=== PATIENT | male | born 1935 | race Caucasian/White ===

== ENCOUNTER 2019-04-06 23:22 | Inpatient (IN) | payer MEDICARE, BC ==
[~2019-04-06] VITALS: Ht 172.7 cm; Wt 84.5 kg
[2019-04-06] MEDS ORDERED: COZAAR25 MG (23:43)
[2019-04-06] MEDS ORDERED: ZOCOR10 MG (23:43)
[2019-04-06] MEDS ORDERED: HYDROCHLOROTH12.5 M1 (23:43)
[2019-04-06] MEDS ORDERED: HUMALOG MI100 UNITS/ (23:45)
[2019-04-06] MEDS ORDERED: HUMULIN N100 U/ML (23:45)
[2019-04-07 00:14] LABS: APTT 36.9 SECONDS (22.8-39.4); INR 1.33 (0.85-1.17); PROTIME 15.9 SECONDS (11.6-15.0)
[2019-04-07 00:22] LABS: KETONE - SERUM SMALL mg/dL (NEGATIVE)
[2019-04-07 00:24] LABS: ALBUMIN 3.1 g/dL (3.4-5.0); ALKALINE PHOSPHATASE 49 U/L (46-116); ALT (SGPT) 26 U/L (10-68); CALC OSMOLALITY 288 mosm/kg (275-300); CALCIUM 8.8 mg/dL (8.5-10.1); CARBON DIOXIDE 23.2 mmol/L (21.0-32.0); CHLORIDE - SERUM 99 mmol/L (98-107); CREATININE - SERUM 1.7 mg/dL (0.6-1.3); HEMOGLOBIN 13.7 g/dL (13.5-17.5); MCH 32.1 pg (26.0-34.0); MCHC 36.1 g/dL (31.0-37.0); MEAN PLATELET VOLUME 9.4 fL (7.4-10.4); POTASSIUM - SERUM 3.3 mmol/L (3.5-5.1); PROTEIN - SERUM 6.5 g/dL (6.4-8.2); RBC 4.27 10x6/uL (4.20-6.10); RDW 12.3 % (11.5-14.5); SODIUM 135 mmol/L (136-145); UREA NITROGEN 32 mg/dL (7-18); eGFR NON AFRICAN AMERICAN 41 mL/min (90-120)
[2019-04-07 00:25] LABS: GLUCOSE 314 mg/dL (74-106)
[2019-04-07 00:29] LABS: PLATELET COUNT 151 10x3/uL (130-400); WBC 1.5 10x3/uL (4.8-10.8)
[2019-04-07 00:44] LABS: CREATINE KINASE 1966 UL (21-232); LIPASE 26 U/L (73-393); MAGNESIUM - SERUM 1.7 mg/dL (1.8-2.4); PRO BNP 2977 pg/mL (0-450); THYROID STIMULATING HORMONE 0.76 uIU/mL (0.36-3.74)
[2019-04-07 00:45] LABS: TROPONIN-I 0.088 ng/mL (0.000-0.060)
[2019-04-07 00:46] LABS: CKMB 4.2 U/L (0.0-3.6)
--- NOTE | 2019-04-07 00:54 | NUR ---
FINGER STICK BLOOD SUGAR 283.
[2019-04-07 01:00] LABS: LYMPHOCYTES 64 % (15-50); MONOCYTES 23 % (2-11); NEUTROPHILS 8 % (40-80); PLATELET ESTIMATE DECREASED
[2019-04-07 01:56] LABS: MONO NEGATIVE (NEGATIVE)
--- NOTE | 2019-04-07 02:00 | NUR ---
DR. EISENBERG CONSULTED AND PAGED. PT AFIBB 120-160 ON TELEMETRY. NEW ORDERS ESTABLISHED AT THIS TIME. WILL CONTINUE TO MONITOR.
--- NOTE | 2019-04-07 03:48 | NUR ---
10mg bolus of cardizem given BY SUE BEAN. CARDIZEM DRIP RUNNING AT 5ML/HR INTIATED BY DIANA. INVENTORY WORKER SOLOMEN NOTIFIED. PT RRE EVEN UNLABORED AT THIS TIME. BED LOW CALL LIGHT WITHIN REACH, BED ALARM IN PLACE. WILL CONTINUE TO MONITOR.
[2019-04-07 04:00] VITALS: BP 110/64
[2019-04-07 05:26] LABS: BASOPHILS 0 % (0-2); EOSINOPHILS 0 % (0-7); HEMATOCRIT 36.8 % (42.0-54.0); HEMOGLOBIN 13.2 g/dL (13.5-17.5); IMMATURE GRANULOCYTES 0.6 % (0-5); LYMPHOCYTES 48.4 % (15-50); MCH 31.8 pg (26.0-34.0); MCHC 35.9 g/dL (31.0-37.0); MCV 88.7 fL (80.0-100.0); MEAN PLATELET VOLUME 9.5 fL (7.4-10.4); PLATELET COUNT 144 10x3/uL (130-400); RBC 4.15 10x6/uL (4.20-6.10); RDW 12.3 % (11.5-14.5)
[2019-04-07 05:30] LABS: WBC 1.6 10x3/uL (4.8-10.8)
[2019-04-07 05:40] LABS: KETONE - SERUM NEGATIVE (NEGATIVE)
[2019-04-07 05:51] LABS: CALCIUM 8.4 mg/dL (8.5-10.1); CHLORIDE - SERUM 100 mmol/L (98-107); CKMB 2.7 U/L (0.0-3.6); CREATININE - SERUM 1.5 mg/dL (0.6-1.3); MAGNESIUM - SERUM 1.7 mg/dL (1.8-2.4); POTASSIUM - SERUM 3.2 mmol/L (3.5-5.1); SODIUM 135 mmol/L (136-145); UREA NITROGEN 27 mg/dL (7-18); eGFR NON AFRICAN AMERICAN 47 mL/min (90-120)
[2019-04-07 05:52] LABS: CALC OSMOLALITY 280 mosm/kg (275-300); CREATINE KINASE 1428 UL (21-232); GLUCOSE 209 mg/dL (74-106); TROPONIN-I 0.228 ng/mL (0.000-0.060)
--- NOTE | 2019-04-07 07:30 | NUR ---
ALERT AND ORIENTED. TELEMERTY SHOWS [id number]. RIGHT FA WITH NS AT 75 AND CARDIZEM AT 10. BED ALARM ON. AT 3 L/M PER NC. LOW POTASSIUN AND LOW MAG TREATED. DENIES ANY NEEDS. SR UP WITH CALL LIGHT IN REACH. WILL MONITOR
[2019-04-07 07:40] LABS: APPEARANCE CLEAR (CLEAR); BILIRUBIN NEGATIVE (NEGATIVE); COLOR YELLOW (YELLOW); GLUCOSE 1000 mg/dL (NEGATIVE); KETONE NEGATIVE (NEGATIVE); NITRITE NEGATIVE (NEGATIVE); PROTEIN 2+ mg/dL (NEGATIVE); UROBILINOGEN NORMAL (NORMAL)
[2019-04-07 07:52] LABS: AMORPHOUS SEDIMENT <1+ /lpf (NONE SEEN); BACTERIA FEW /hpf (NONE SEEN); EPITHELIAL CELLS OCC /hpf (0-5); GRANULAR CAST 0-5 /lpf (NONE SEEN); MUCUS <1+ /lpf (NONE SEEN); RED CELLS - URINE OCC /hpf (0-5); WHITE CELLS - URINE NSEEN /hpf (0-5)
[2019-04-07 08:57] VITALS: BP 120/65
[2019-04-07] MEDS ORDERED: ZOCOR40 MG PO (10:24)
[2019-04-07] MEDS ORDERED: COZAAR50 MG (10:41)
[2019-04-07] MEDS ORDERED: HYDROCHLOROTH12.5 M1 PO (10:42)
[2019-04-07] MEDS ORDERED: PLENDIL2.5 MG PO (10:43)
[2019-04-07] MEDS ORDERED: CATAPRES0.1 MG PO (10:51)
[2019-04-07] MEDS ORDERED: HUMULIN N100 U/ML SC ×2 (10:54→10:56)
[2019-04-07] MEDS ORDERED: HUMALOG 30100 UNITS/ SC (10:57)
[2019-04-07 12:09] LABS: CKMB 1.6 U/L (0.0-3.6)
[2019-04-07 12:11] LABS: CREATINE KINASE 917 UL (21-232)
[2019-04-07 12:12] LABS: TROPONIN-I 0.449 ng/mL (0.000-0.060)
[2019-04-07 12:53] VITALS: BMI 24.0
[2019-04-07 13:07] VITALS: BP 92/62
[2019-04-07 16:37] VITALS: BP 94/59
--- NOTE | 2019-04-07 19:15 | NUR ---
AROUSES EASY REVERSE ISOLATION IS BEING OBSERVED LCTA SKIN WARM AND DRY O2 AT 3L MONITOR IN PLACE AND RUNNING AFIB AT 121 BED IS LOW AND LOCKED AND PT DENIES PAIN OR NEEDS
[2019-04-07 20:00] VITALS: BP 122/60
[2019-04-08] VITALS (14 sets, daily range): BP systolic 102–143; BP diastolic 60–92; Ht 172.7 cm; Wt 84.5 kg
--- NOTE | 2019-04-08 02:07 | NUR ---
REATARTED BOTH IVs ONE TO LEFT AC AND ONE TO RT FOREARM CARDIZEM TO LEFT AND IV TKO TO RT
[2019-04-08 04:55] LABS: HEMATOCRIT 37.1 % (42.0-54.0); HEMOGLOBIN 13.3 g/dL (13.5-17.5); MCH 31.8 pg (26.0-34.0); MCHC 35.8 g/dL (31.0-37.0); MCV 88.8 fL (80.0-100.0); MEAN PLATELET VOLUME 9.6 fL (7.4-10.4); PLATELET COUNT 128 10x3/uL (130-400); RBC 4.18 10x6/uL (4.20-6.10); RDW 12.1 % (11.5-14.5)
[2019-04-08 04:58] LABS: INR 1.12 (0.85-1.17); PROTIME 13.9 SECONDS (11.6-15.0)
[2019-04-08 05:07] LABS: ANION GAP 11.6 mmol/L (8-16); CALCIUM 8.7 mg/dL (8.5-10.1); CARBON DIOXIDE 25.1 mmol/L (21.0-32.0); CREATININE - SERUM 1.4 mg/dL (0.6-1.3); PHOSPHOROUS 1.6 mg/dL (2.5-4.9); POTASSIUM - SERUM 3.7 mmol/L (3.5-5.1)
[2019-04-08 05:34] LABS: LYMPHOCYTES 51 % (15-50); MONOCYTES 30 % (2-11); NEUTROPHILS 18 % (40-80); PLATELET ESTIMATE NORMAL
--- NOTE | 2019-04-08 07:30 | NUR ---
ASSESSMENT COMPLETED. ALERT AND ORIENTED. TELEMERTY SHOWS A FIB AT 119 IV TO RIGHT AC WITN NS AND CARDIZEM AT 5 INFUSING INTO LEFT AC. NPO FOR BONE BX. DENIES ANY NEEDS. SR UP WITH CALL LIGHT IN REACH. WILL MONITOR
[2019-04-08 12:10] LABS: EBV - EARLY ANTIGEN AB IGG <9.0 U/mL (0.0-8.9); EBV VIRAL CAPSID AB IGG 44.4 U/mL (0.0-17.9); EBV VIRAL CAPSID AB IGM <36.0 U/mL (0.0-35.9)
--- NOTE | 2019-04-08 19:33 | NUR ---
RECIEVED UP IN BED WITH EYES OPEN. ALERT AND ORIETNED TO PERSON AND PLACE ONLY. O2@ 3 LITERS PER N/C. DSG TO LOWER MID BACK. REMAINS IN NEUTROPENIC ISOLATION. TELEMETRY IN PLACE. DENIES ANY NEEDS AT THIS TIME.
--- NOTE | 2019-04-09 00:17 | NUR ---
PULLED BOTH IV'S OUT EARLIER. RESTARTED ONE IN LEFT FA. CARDIZEM INFUSING AT 5CC/HR. ALSO, PULLED OFF TELEMETRY. NITHIN " IDID'NT KNOW I DID THAT". ALERT AND ORIENTED TO PERSON AND PLACE ONLY.
[2019-04-09 04:00] VITALS: BP 115/69
--- NOTE | 2019-04-09 07:32 | NUR ---
ROUNDING DONE WITH PATIENT BEING IN NETROPENIC ISOLATION. WBC THIS AM IS 2.0. CONFUSED. I SET BED ALARM ON BED. ON 3L PER NC. ON HEART MONITOR SHWOING UCAF, HR 141. RGITH FA PIV SEEN WITH CARDIZEM INFUSING AT 5 CC/HR AND RIGHT FA INFUSING WITH NS INFUSING AT 100 CC/HR. ON EP, NO LABS SEEN.
[2019-04-09 07:55] VITALS: BP 104/68
--- NOTE | 2019-04-09 08:21 | NUR ---
TAKEN OUT OF ISOLATION.
[2019-04-09 09:47] LABS: BASOPHILS 0.2 % (0-2); EOSINOPHILS 0 % (0-7); HEMATOCRIT 38.9 % (42.0-54.0); HEMOGLOBIN 13.7 g/dL (13.5-17.5); IMMATURE GRANULOCYTES 0.5 % (0-5); LYMPHOCYTES 16.5 % (15-50); MCH 31.7 pg (26.0-34.0); MCHC 35.2 g/dL (31.0-37.0); MEAN PLATELET VOLUME 10.4 fL (7.4-10.4); MONOCYTES 26.9 % (2-11); NEUTROPHILS 55.9 % (40-80); PLATELET COUNT 141 10x3/uL (130-400); RBC 4.32 10x6/uL (4.20-6.10); RDW 12.2 % (11.5-14.5)
[2019-04-09 09:51] LABS: ANION GAP 13.9 mmol/L (8-16); CALCIUM 8.4 mg/dL (8.5-10.1); CARBON DIOXIDE 24.3 mmol/L (21.0-32.0); CREATININE - SERUM 1.1 mg/dL (0.6-1.3); POTASSIUM - SERUM 4.2 mmol/L (3.5-5.1)
[2019-04-09 09:52] LABS: WBC 4.1 10x3/uL (4.8-10.8)
--- NOTE | 2019-04-09 11:56 | NUR ---
CARDIZEM DRIP STOPPED.
[2019-04-09 12:25] VITALS: BP 124/57
--- NOTE | 2019-04-09 12:52 | NUR ---
FAMILY TO LEAVE. BED ALARM IS ON AND IN USE AND DOOR IS OPEN.
--- NOTE | 2019-04-09 14:02 | NUR ---
REHAB PRESCREENING Rehab referral received and chart reviewed. PT evaluation has been ordered but not documented as of yet. Rehab will continue to follow this patient for admission criteria. Thank you for this referral! Hannah Nava, PERL PROGRAMMER Rehab PD
[2019-04-09 16:02] VITALS: BP 146/80
--- NOTE | 2019-04-09 17:31 | NUR ---
DR MCCARTHY IN TO SEE PATIENT.
--- NOTE | 2019-04-09 19:26 | NUR ---
RECIEVED RESTING IN BED WITH EYES OPEN. ALERT AND ORIENTED X1. CONFUSED NTO PLACE TIME AND SITUATION. PULLED GOWN OFF AND HAS WET BRIEF ON. PLACED GOWN BACK ON PT AND BRIEF CHANGED WITH PERICARE PROVIDED. IV TO RIGHT AND LEFT FA. BED ALRM ON AND FUNCTIONING PROPERLY. NO S/S OF DISTRESS OBSERVED.
[2019-04-09 20:00] VITALS: BP 123/66; BP 143/82
[2019-04-10] VITALS: BP 97/46
--- NOTE | 2019-04-10 01:39 | NUR ---
[facility] HAS NUMEROUS RUNS OF V-TACH. 7-[address] WHITTINGTON WITH NEW ORDERS FOR CARDIZEM 60MG PO X1 NOW AND INCREASE HIS DOSE TO 120MG TID. O2 SAT HAD DROPPED TO 89% UPP0ED O2 TO 3 LITERS PER N/C WITH VERY LITTLE RESULTS. CALLED RT TO EVALUATE. INCREASED O2 TO 4 LITERS AND SATS ARE 92% AT THIS TIME. NO DISTRESS OBSERVED. LUNG SOUNDS ARE CLEAR.
[2019-04-10 05:25] LABS: HEMATOCRIT 38.2 % (42.0-54.0); HEMOGLOBIN 13.5 g/dL (13.5-17.5); MCH 31.8 pg (26.0-34.0); MCHC 35.3 g/dL (31.0-37.0); MCV 89.9 fL (80.0-100.0); MEAN PLATELET VOLUME 10.1 fL (7.4-10.4); PLATELET COUNT 153 10x3/uL (130-400); RBC 4.25 10x6/uL (4.20-6.10); RDW 12.5 % (11.5-14.5)
[2019-04-10 05:42] LABS: ANION GAP 13.8 mmol/L (8-16); CALCIUM 8.3 mg/dL (8.5-10.1); CARBON DIOXIDE 22.8 mmol/L (21.0-32.0); CREATININE - SERUM 1.1 mg/dL (0.6-1.3); POTASSIUM - SERUM 3.6 mmol/L (3.5-5.1); VANCOMYCIN - RANDOM 4.5 ug/mL (10.0-20.0)
[2019-04-10 05:56] LABS: LYMPHOCYTES 20 % (15-50); MONOCYTES 26 % (2-11); NEUTROPHILS 46 % (40-80); PLATELET ESTIMATE NORMAL
[2019-04-10 07:58] VITALS: BP 128/78
--- NOTE | 2019-04-10 08:03 | NUR ---
ASSESMENT DONE. WITHOUT DISTRESS NOTED AT THIS TIME.
--- NOTE | 2019-04-10 09:24 | EC ---
PATIENT:JODI GROVE DATE OF SERVICE: 04/07/19 SEX: M MEDICAL RECORD: [id number] DATE OF : 35 LOCATION:D.M2 D.212 AGE OF PATIENT: 83 ADMISSION DATE: 04/07/19 REFERRING PHYSICIAN: INTERPRETING PHYSICIAN: ANMOL EISENBERG MD ECHOCARDIOGRAM REPORT ECHO CHARGES 4 ECHO COMPLETE Date: 04/07/19 CLINICAL DIAGNOSIS: ECHOCARDIOGRAPHIC MEASUREMENTS (adult normal given) AC root (d.<3.7cm) 3.6 cm LV Septum d (<1.2 cm> 1.6 cm Valve Excursion 2.0 cm LV Septum (systole) 2.3 cm Left Atria (s.<4.0cm> 4.4 cm LVPW d(<1.2cm) 1.3 cm RV (d.<2.3cm) 2.6 cm LVPW (sytole) 1.9 cm LV diastole(<5.6CM) 5.0 cm MV E-F(>70mm/sec) cm LV systole 2.3 cm LVOT Diameter 1.9 cm MV exc.(>10mm) cm Est.ejection fraction (50-75%) % DOPPLER: LVIT cm/sec A cm/sec E 78.0 cm/sec LA cm/sec RVSP 36.1 mmHg LVOT 128 cm/sec AOP1/2T m/s Asc. Ao 134 cm/sec RVOT 142 cm/sec RA cm/sec PA 142 cm/sec AV Gradient Peak 7.2 mmHg AV Mean 3.9 mmHg AV Area 2.4 cm MV Gradient Peak 3.6 mmHg MV Mean 1.5 mmHg MV Area cm COMMENTS: Micro Photographer: 1 PEDRO BENITEZOE Management Retail Intern: 3 Dr. Velasquez TAPE# PACS Pericardial Effusion N DATE OF SERVICE: Adequate 2D, color flow, spectral Doppler, and M-mode. LVH is present. LV internal dimension is normal. Wall motion normal. EF is greater than or equal to 55%. Aortic valve is sclerotic. There is no evidence of stenosis by Doppler interrogation. Left atrium is dilated at 4.4 cm. Mitral valve shows no prolapse. Trace MR. Right-sided chambers grossly normal. Trace TR. TRANSINT:[id number] Voice Confirmation ID: [id number] DOCUMENT ID: [id number] ECHOCARDIOGRAM REPORT [id number] PERFECTO,SEABERN ANMOL EISENBERG MD at 0924 CC: [id number] DICTATION DATE: 04/07/19 1241 BREAKER OPERATOR: 04/07/19 1311 ADM IN [facility] [address] [id number]
--- NOTE | 2019-04-10 09:24 | CN ---
PATIENT NAME:JODI GROVE MEDICAL RECORD: [id number] : 35 LOCATION:. D.2121 ADMIT DATE: 04/07/19 ACCOUNT: [id number] CONSULTING PHYSICIAN: ANMOL EISENBERG MD REFERRING PHYSICIAN: CATHLEEN MCCARTHY MD DATE OF CONSULTATION: 04/07/2019 HISTORY OF PRESENT ILLNESS: An 83-year-old gentleman with history of diabetes, has a history of dyslipidemia and hypertension, was admitted with hyperglycemia as well as leukopenia. His main complaint at this point in time is some generalized fatigue. No specific qualifying symptomology. No palpitations, perhaps some dyspnea on exertion, found to be in atrial fibrillation, rate is currently improved on Cardizem drip. Etiology of this historically is very difficult to turn and in fact may be chronic. We are asked to see him concerning his cardiovascular status. PAST MEDICAL HISTORY: Includes: 1. History of diabetes mellitus. 2. Dyslipidemia. MEDICATIONS: Include insulin per scale, losartan 50 every day, simvastatin unknown dose, HCTZ 25 every day. ALLERGIES: None known. SOCIAL HISTORY: Nonsmoker, nondrinker. Typically, active, able to take care of his ADLs. REVIEW OF SYSTEMS: The patient reports easy bruising but reports no swollen glands. The patient reports no fever, no night sweats, no significant weight gain, no significant weight loss. No significant exercise tolerance. The patient reports no dry eyes, no irritation, no vision change. Patient reports no difficulty hearing and no ear pain. Patient reports no frequent nose bleeds or nose and sinus problems. Patient reports on arm pain on exertion. No shortness of breath while lying down. No history of heart murmur. Patient reports no cough, no wheezing or coughing up blood. Patient reports no abdominal pain, no vomiting. Normal appetite. No diarrhea and not vomiting blood. No nausea and no constipation. Patient reports no incontinence. No difficulty urinating. No hematuria. No increased frequency. Patient reports no muscle aches. No weakness, no arthralgias, no back pain. No swelling of the extremities. Patient reports no abnormal mole, no jaundice, no rashes. Reports no loss of consciousness. No weakness and no numbness. No seizures, dizziness, or headaches. The patient reports no depression, no sleep disturbance, feeling safe in a relationship and no alcohol abuse. Patient reports on fatigue. Reports no runny nose or sinus pressure. No itching, no hives, and no frequent sneezing. PHYSICAL EXAMINATION: GENERAL: Elderly gentleman in no acute distress, poor historian. VITAL SIGNS: Blood pressure 110/64, pulse 92, irregular. HEENT: Normocephalic, atraumatic. NECK: No bruits noted. HEART: Irregular, rate is controlled. A II/ systolic ejection murmur. LUNGS: Fair air excursion. ABDOMEN: Soft, nontender. CONSULT REPORT [id number] JODI GROVE EXTREMITIES: Pulses 2+. No edema. DIAGNOSTIC DATA: EKG shows atrial fibrillation. IMPRESSION: Atrial fibrillation, duration unknown. Check echocardiographic study. At this point in time, given his lack of symptoms, strive for rate control. We will add NOAC when his hematological deficiencies are addressed if the patient is a candidate. TRANSINT:[id number] Voice Confirmation ID: [id number] DOCUMENT ID: [id number] ANMOL EISENBERG MD at 0924 CC: [id number] DICTATION DATE: 04/07/19841 ADVERTISING STRATEGIST: 04/07/1915 ADM IN [facility] [address] [place] [address]
--- NOTE | 2019-04-10 09:50 | NUR ---
REHAB PRESCREENING PT eval completed. This patient will be a good candidate for ARU when he is medically stable and his physician feels he is appropriate to discharge. Rehab will continue to follow. Hannah Nava, AGUILAR Rehab PD
[2019-04-10 11:57] VITALS: BP 122/71
[2019-04-10 14:55] VITALS: BP 113/59
--- NOTE | 2019-04-10 15:46 | NUR ---
I have reviewed this patient and I concur with the Shift Assessment completed by the Licensed Practical Nurse today this shift.
--- NOTE | 2019-04-10 17:05 | NUR ---
WITHOUT CHANGES OR DISTRESS NOTED AT THIS TIME. DENIES NEEDS
--- NOTE | 2019-04-10 19:45 | NUR ---
RECEIVED REPORT, WILL ASSUME CARE OF PT, SITTING ON SIDE OF BED, DENIES ANY NEEDS AT THIS TIME, BED IS LOW, SRX2, BED ALARM IS ON, WILL CONTINUE PLAN OF CARE
[2019-04-10 20:00] VITALS: BP 103/57
[2019-04-11] VITALS: BP 101/61; BP 104/43
[2019-04-11 04:00] VITALS: BP 115/78
--- NOTE | 2019-04-11 04:43 | NUR ---
I have reviewed this patient and I concur with the Shift Assessment completed by the Licensed Practical Nurse today this shift.
[2019-04-11 05:50] LABS: BASOPHILS 0.5 % (0-2); EOSINOPHILS 0.3 % (0-7); HEMOGLOBIN 13.2 g/dL (13.5-17.5); IMMATURE GRANULOCYTES 5.1 % (0-5); LYMPHOCYTES 16.6 % (15-50); MCH 31.7 pg (26.0-34.0); MCHC 35.7 g/dL (31.0-37.0); MCV 88.9 fL (80.0-100.0); MEAN PLATELET VOLUME 10.4 fL (7.4-10.4); MONOCYTES 16.2 % (2-11); NEUTROPHILS 61.3 % (40-80); PLATELET COUNT 180 10x3/uL (130-400); RBC 4.16 10x6/uL (4.20-6.10); RDW 12.5 % (11.5-14.5)
[2019-04-11 05:53] LABS: WBC 10.9 10x3/uL (4.8-10.8)
[2019-04-11 06:09] LABS: ANION GAP 15.4 mmol/L (8-16); CALCIUM 7.7 mg/dL (8.5-10.1); CARBON DIOXIDE 20.3 mmol/L (21.0-32.0); CREATININE - SERUM 1.2 mg/dL (0.6-1.3); POTASSIUM - SERUM 3.7 mmol/L (3.5-5.1)
--- NOTE | 2019-04-11 07:20 | NUR ---
ASSESSMENT COMPLETED. CONFUSED. TELEMERTY SHOWS UCAF 129. O2 AT 4 L/M PER NC. BED ALARM ON. LEFT HAND SL. DENIES AND NEEDS. SR UP WITH CALL LIGHTIN REACH. FAMILY AT BEDSIDE. WILL MONITOR
[2019-04-11 08:39] VITALS: BP 110/67
[2019-04-11 11:43] VITALS: BP 113/73
--- NOTE | 2019-04-11 15:03 | NUR ---
Nutrition Follow-up: Pt reports appetite/PO intake improving. Diet: Diabetic Neutropenic PO intake: 53% avg today Wt: 186# Last BM: 04/11 Labs reviewed Meds reviewed Continue current diet as tolerated. [place] food preferences within diet restrictions. RD following.
--- NOTE | 2019-04-11 15:39 | NUR ---
Visited with the patient, his and daughter today re rehab. He is not sure he wants to participate in the program and refused PT today according to the PT notes. Discussed with the CM Tom. Melinda Marie RN Clinical liaison, Rehab
[2019-04-11 18:24] VITALS: BP 115/78
--- NOTE | 2019-04-11 19:04 | NUR ---
LYING QUIETLY. BEDALARM ON. SR UP WITH CALL LIGHT IN REACH
[2019-04-11 20:00] VITALS: BP 114/60
[2019-04-12 04:00] VITALS: BP 120/55
[2019-04-12 06:47] LABS: CALCIUM 7.7 mg/dL (8.5-10.1); CARBON DIOXIDE 24.4 mmol/L (21.0-32.0); CHLORIDE - SERUM 103 mmol/L (98-107); SODIUM 135 mmol/L (136-145); UREA NITROGEN 19 mg/dL (7-18); eGFR NON AFRICAN AMERICAN 76 mL/min (90-120)
[2019-04-12 06:50] LABS: CALC OSMOLALITY 274 mosm/kg (275-300); GLUCOSE 146 mg/dL (74-106)
[2019-04-12 06:51] LABS: POTASSIUM - SERUM 2.7 mmol/L (3.5-5.1)
[2019-04-12 07:21] LABS: BASOPHILS 0.5 % (0-2); HEMATOCRIT 35.2 % (42.0-54.0); HEMOGLOBIN 12.8 g/dL (13.5-17.5); IMMATURE GRANULOCYTES 4.9 % (0-5); LYMPHOCYTES 17.9 % (15-50); MCH 31.7 pg (26.0-34.0); MCHC 36.4 g/dL (31.0-37.0); MCV 87.1 fL (80.0-100.0); MEAN PLATELET VOLUME 11.2 fL (7.4-10.4); MONOCYTES 14.4 % (2-11); NEUTROPHILS 61.3 % (40-80); RBC 4.04 10x6/uL (4.20-6.10); RDW 12.4 % (11.5-14.5); WBC 11.5 10x3/uL (4.8-10.8)
[2019-04-12 07:23] LABS: PLATELET COUNT 122 10x3/uL (130-400)
--- NOTE | 2019-04-12 07:41 | NUR ---
ROUNDING DONE WITH PATIENT RESTING WITH EYES CLOSED. LAYING ON RIGHT SIDE, MALE FAMILY MEMBER IN ROOM BRADEN MAT ALARM IS ON. I TURNED BED ALARM ON ALSO. ON 4L PER NC. ON HEART MONITOR. LEFT HAND SALINE LOCK SEEN. ON EP, K+ IS 2.7. FIRST DOSE OF POTASSIUM GIVEN, WILL CONTINUE TO COVER WITH ORAL SUPPLEMENTS.
[2019-04-12 09:20] VITALS: BP 118/76
--- NOTE | 2019-04-12 12:38 | NUR ---
PATIENT IS SITTING UP IN CHAIR EATING LUNCH. GLASSES ON. AT BEDSIDE. DENIES ANY NEEDS.
[2019-04-12 13:35] VITALS: BP 127/70
--- NOTE | 2019-04-12 15:30 | NUR ---
RE-DRAW OF POTASSIUM IS 3.4. WILL GIVE MORE ORAL SUPPLEMENTS.
--- NOTE | 2019-04-12 16:18 | NUR ---
POC RE-CHECKED WITH READING OF 128 PAST 25 CC DEXTROSE GIVEN.
--- NOTE | 2019-04-12 17:20 | NUR ---
RCIEVED REPORT FROM DAY SHIFT NURSE. PT IN BED EATING DINNER. AT BED SIDE. PT DENIES PAIN OR NEEDS, BED LOW, CL IN REACH, BED ALARM IN USE.
[2019-04-12 17:42] VITALS: BP 140/70
--- NOTE | 2019-04-12 17:56 | MORECARE ---
CASE MANAGEMENT DISCHARGE SUMMARY PATIENT: JODI GROVE UNIT: [id number] ADM DATE: 04/07/19 AGE: 83 : 35 SEX: M ROOM/BED: D.2121 AUTHOR: TIM,DOC PHYSICIAN: REFERRING PHYSICIAN: CATHLEEN MCCARTHY MD DATE OF SERVICE: 04/12/19 Discharge Plan Patient Name: JODI GROVE Facility: [facility]:[place] : 1935 Planned Disposition: Residential Facility Anticipated Discharge Date: 04/14/19 Discharge Date: Expected LOS: 7 Initial Reviewer: [email or web address] Initial Review Date: 04/12/2019 Generated: 04/12/19 6:56 pm Comments DCP- Discharge Planning Updated by [email or web address]: Min Deleon on 04/12/19 4:[address] Patient Name: JODI GROVE Admission Status: ER Accout number: [id number] Admission Date: 04-07-2019 : 1935 Admission Diagnosis:HYPERGLYCEMIA, UNSPECIFIED Attending: CATHLEEN MCCARTHY Current LOS: 5 Anticipated DC Date: 04-14-2019 Planned Disposition: Residential Facility Primary Insurance: MEDICARE A & B PLANNED EXTERNAL PROVIDER: [facility], MEDICARE REHAB BED Discharge Planning Comments: CM MET WITH PT AND SPOUSE IN ROOM TO DISCUSS DISCHARGE PLANNING AND NEEDS. JODI GROVE provided verbal consent to discuss current and ongoing needs with/in the presence of: SPOUSE, NANI. PT REPORTS LIVING AT HOME INDEPENDENTLY WITH SPOUSE. PT HAS NO MEDICAL EQUIPMENT AND NO OUTSIDE SERVICES ASSISTING IN THE HOME. CM DISCUSSED AVAILABILITY OF HOME HEALTH, REHAB SERVICES AND MEDICAL EQUIPMENT. PT AND SPOUSE INITIALLY REPORT PLAN FOR PT TO GO HOME WITH HOME HEALTH, THEY WERE THINKING OF USING [facility]. CM DISCUSSED THERAPY PROGRESS, PT'S SPOUSE REPORTS PT IS VERY WEAK AND SHE IS NOT ABLE TO HELP BECAUSE OF HER HURT BACK. PT AND SPOUSE THEN DISCUSSED REHAB AND THEY WANT REHAB AT [facility] WHICH IS CLOSER TO THEIR HOME. CHOICE SIGNED. IMPORTANT MESSAGE FROM MEDICARE PROVIDED AND EXPLAINED. CM FAXED REFERRAL INFORMATION TO [facility] AT [phone]. CM WAITING ADMISSION DETERMINATION FROM [facility] FOR REHAB SERVICES. Applications Trainer: Min Deleon DCPIA - Discharge Planning Initial Assessment Updated by [id number]: Min Deleon on 04/12/19 5:49 pm * Is the patient Alert and Oriented? Yes * How many steps to enter\exit or inside your home? * PCP DR JAMA * [facility] * Preadmission Environment Home with Family * ADLs Independent * Equipment None * Other Equipment NO MEDICAL EQUIPMENT PROVIDER PREFERENCE * List name and contact numbers for known caregivers / representatives who currently or will assist patient after discharge: NANI GROVE, SPOUSE, * Verbal permission to speak to the caregivers and representatives has been obtained from the patient. Yes * Community resources currently utilized None * Please name any agencies selected above. NONE * Additional services required to return to the preadmission environment? Yes * Can the patient safely return to the preadmission environment? Yes * Has this patient been hospitalized within the prior 30 days at any hospital? No External Providers External Provider: [facility] Next Contact Date: 04/12/2019 Service Request Date: Service Type: Resolution: Reviewer: Comments: Coverage Notice Reviewer: [email or web address] Jenn Deleon Notice Issued Date-Time: 04/12/2019 14:45 Notice Type: Patient Choice Letter Notice Delivered To: Patient Relationship to Patient: Reading Interventionist Name: Delivery Method: HAND - Hand Delivered Serena Days: Prior Verbal Notification: Recipient Understood Notice: Yes Recipient Signature: Yes Med Rec Note Co-signed by Attending: Coverage Notice Comment: [facility]. Reviewer: [email or web address] Jenn Deleon Notice Issued Date-Time: 04/12/2019 14:45 Notice Type: IM Discharge Notice Notice Delivered To: Patient Relationship to Patient: Reading Interventionist Name: Delivery Method: HAND - Hand Delivered Serena Days: Prior Verbal Notification: Recipient Understood Notice: Yes Recipient Signature: Yes Med Rec Note Co-signed by Attending: Coverage Notice Comment: Patient Name: JODI GROVE Page [phone] at 1753 All edits/amendments must be made on the electronic document DICTATION DATE: 04/12/191754 NEUROCRITICAL CARE PHYSICIAN: ADITI 04/12/191754 RPT#: [id number] DC DATE: STATUS: ADM IN [facility] [address] [place] [address] END OF REPORT
[2019-04-12 20:00] VITALS: BP 133/84
--- NOTE | 2019-04-12 21:18 | NUR ---
HS MEDS GIVEN WITH FRESH ICE WATER. BS 112, NO COVERGE PER S/S. HS SNACK PROVIDED. AT BED SIDE.
[2019-04-13] VITALS: BP 138/57
--- NOTE | 2019-04-13 02:59 | NUR ---
I have reviewed this patient and I concur with the Shift Assessment completed by the Licensed Practical Nurse today this shift.
--- NOTE | 2019-04-13 03:40 | NUR ---
RESTING WITH EYES CLOSED, RESPERATIONS EVEN, NO S/S DISTRESS NOTED.
[2019-04-13 04:00] VITALS: BP 136/78
[2019-04-13 05:40] LABS: ANION GAP 14.5 mmol/L (8-16); CALCIUM 7.5 mg/dL (8.5-10.1); CARBON DIOXIDE 22.3 mmol/L (21.0-32.0); CREATININE - SERUM 1.1 mg/dL (0.6-1.3); POTASSIUM - SERUM 3.8 mmol/L (3.5-5.1)
[2019-04-13 05:47] LABS: BASOPHILS 0.4 % (0-2); EOSINOPHILS 0.6 % (0-7); HEMATOCRIT 34.6 % (42.0-54.0); HEMOGLOBIN 12.4 g/dL (13.5-17.5); IMMATURE GRANULOCYTES 5.9 % (0-5); LYMPHOCYTES 15.2 % (15-50); MCH 31.7 pg (26.0-34.0); MCHC 35.8 g/dL (31.0-37.0); MCV 88.5 fL (80.0-100.0); MEAN PLATELET VOLUME 10.3 fL (7.4-10.4); MONOCYTES 11.7 % (2-11); NEUTROPHILS 66.2 % (40-80); RBC 3.91 10x6/uL (4.20-6.10); RDW 12.8 % (11.5-14.5); WBC 11.8 10x3/uL (4.8-10.8)
[2019-04-13 05:52] LABS: PLATELET COUNT 206 10x3/uL (130-400)
--- NOTE | 2019-04-13 07:32 | NUR ---
REPORT RECEIVED. WILL CONTINUE WITH POC. PT CURRENTLY LYING SEMI FOWLERS. CALL LIGHT W/I REACH. FAMILY AT BEDSIDE. RR EVEN AND UNLABORED ON 4L 02. L.HAND PIV IS SALINE LOCKED. NO S/S OF DISTRESS NOTED. PT DENIES ANY NEEDS. WILL CTM.
--- NOTE | 2019-04-13 09:11 | MORECARE ---
CASE MANAGEMENT DISCHARGE SUMMARY PATIENT: JODI GROVE UNIT: [id number] ADM DATE: 04/07/19 AGE: 83 : 35 SEX: M ROOM/BED: D.2121 AUTHOR: TIM,DOC PHYSICIAN: REFERRING PHYSICIAN: CATHLEEN MCCARTHY MD DATE OF SERVICE: 04/13/19 Discharge Plan Patient Name: JODI GROVE Facility: [facility]:[place] : 1935 Planned Disposition: Assisted Facility Anticipated Discharge Date: 04/14/19 Discharge Date: Expected LOS: 7 Initial Reviewer: [email or web address] Initial Review Date: 04/12/2019 Generated: 04/13/19 10:11 am Comments DCP- Discharge Planning Updated by [email or web address]: Min Deleon on 04/12/19 4:[address] Patient Name: JODI GROVE Admission Status: ER Accout number: [id number] Admission Date: 04-07-2019 : 1935 Admission Diagnosis:HYPERGLYCEMIA, UNSPECIFIED Attending: CATHLEEN MCCARTHY Current LOS: 5 Anticipated DC Date: 04-14-2019 Planned Disposition: Assisted Facility Primary Insurance: MEDICARE A & B PLANNED EXTERNAL PROVIDER: [facility], MEDICARE REHAB BED Discharge Planning Comments: CM MET WITH PT AND SPOUSE IN ROOM TO DISCUSS DISCHARGE PLANNING AND NEEDS. JODI GROVE provided verbal consent to discuss current and ongoing needs with/in the presence of: SPOUSE, NANI. PT REPORTS LIVING AT HOME INDEPENDENTLY WITH SPOUSE. PT HAS NO MEDICAL EQUIPMENT AND NO OUTSIDE SERVICES ASSISTING IN THE HOME. CM DISCUSSED AVAILABILITY OF HOME HEALTH, REHAB SERVICES AND MEDICAL EQUIPMENT. PT AND SPOUSE INITIALLY REPORT PLAN FOR PT TO GO HOME WITH HOME HEALTH, THEY WERE THINKING OF USING [facility]. CM DISCUSSED THERAPY PROGRESS, PT'S SPOUSE REPORTS PT IS VERY WEAK AND SHE IS NOT ABLE TO HELP BECAUSE OF HER HURT BACK. PT AND SPOUSE THEN DISCUSSED REHAB AND THEY WANT REHAB AT [facility] WHICH IS CLOSER TO THEIR HOME. CHOICE SIGNED. IMPORTANT MESSAGE FROM MEDICARE PROVIDED AND EXPLAINED. CM FAXED REFERRAL INFORMATION TO [facility] AT [phone]. CM WAITING ADMISSION DETERMINATION FROM [facility] FOR REHAB SERVICES. Cryptological Technician: Min Deleon DCPIA - Discharge Planning Initial Assessment Updated by ALBARO: Min Deleon on 04/12/19 5:49 pm * Is the patient Alert and Oriented? Yes * How many steps to enter\exit or inside your home? * PCP DR JMAA * Pharm[facility] * Preadmission Environment Home with Family * ADLs Independent * Equipment None * Other Equipment NO MEDICAL EQUIPMENT PROVIDER PREFERENCE * List name and contact numbers for known caregivers / representatives who currently or will assist patient after discharge: NANI GROVE, SPOUSE, * Verbal permission to speak to the caregivers and representatives has been obtained from the patient. Yes * Community resources currently utilized None * Please name any agencies selected above. NONE * Additional services required to return to the preadmission environment? Yes * Can the patient safely return to the preadmission environment? Yes * Has this patient been hospitalized within the prior 30 days at any hospital? No Coverage Notice Reviewer: ALBARO Deleon Notice Issued Date-Time: 04/12/2019 14:45 Notice Type: Patient Choice Letter Notice Delivered To: Patient Relationship to Patient: Occupational Health Technician Name: Delivery Method: HAND - Hand Delivered Serena Days: Prior Verbal Notification: Recipient Understood Notice: Yes Recipient Signature: Yes Med Rec Note Co-signed by Attending: Coverage Notice Comment: [facility]. Reviewer: [email or web address] Deleon Notice Issued Date-Time: 04/12/2019 14:45 Notice Type: IM Discharge Notice Notice Delivered To: Patient Relationship to Patient: Occupational Health Technician Name: Delivery Method: HAND - Hand Delivered Serena Days: Prior Verbal Notification: Recipient Understood Notice: Yes Recipient Signature: Yes Med Rec Note Co-signed by Attending: Coverage Notice Comment: Last DP export: 04/12/19 4:56 p Patient Name: JODI GROVE Page [phone] at 0911 All edits/amendments must be made on the electronic document DICTATION DATE: 04/13/19910 VEHICLE DAMAGE APPRAISER: ADITI 04/13/19910 RPT#: [id number] [place] DATE: STATUS: ADM IN [facility] [address] [place] [address] END OF REPORT
[2019-04-13 09:31] VITALS: BP 153/82
[2019-04-13 11:24] VITALS: BP 149/74
--- NOTE | 2019-04-13 15:29 | NUR ---
I have reviewed this patient and I concur with the Shift Assessment completed by the Licensed Practical Nurse today this shift.
[2019-04-13 16:14] VITALS: BP 132/67
--- NOTE | 2019-04-13 16:23 | MORECARE ---
CASE MANAGEMENT DISCHARGE SUMMARY PATIENT: JODI GROVE UNIT: [id number] ADM DATE: 04/07/19 AGE: 83 : 35 SEX: M ROOM/BED: D.2121 AUTHOR: TIM,DOC PHYSICIAN: REFERRING PHYSICIAN: CATHLEEN MCCARTHY MD DATE OF SERVICE: 04/13/19 Discharge Plan Patient Name: JODI GROVE Facility: [facility]:[place] : 1935 Planned Disposition: Shelter Facility Anticipated Discharge Date: 04/14/19 Discharge Date: Expected LOS: 7 Initial Reviewer: [id number] Initial Review Date: 04/12/2019 Generated: 04/13/19 5:23 pm Comments DCP- Discharge Planning Updated by [id number]: Min Deleon on 04/12/19 4:[address] Patient Name: JODI GROVE Admission Status: ER Accout number: [id number] Admission Date: 04-07-2019 : 1935 Admission Diagnosis:HYPERGLYCEMIA, UNSPECIFIED Attending: CATHLEEN MCCARTHY Current LOS: 5 Anticipated DC Date: 04-14-2019 Planned Disposition: Shelter Facility Primary Insurance: MEDICARE A & B PLANNED EXTERNAL PROVIDER: [facility], MEDICARE REHAB BED Discharge Planning Comments: CM MET WITH PT AND SPOUSE IN ROOM TO DISCUSS DISCHARGE PLANNING AND NEEDS. JODI GROVE provided verbal consent to discuss current and ongoing needs with/in the presence of: SPOUSE, NANI. PT REPORTS LIVING AT HOME INDEPENDENTLY WITH SPOUSE. PT HAS NO MEDICAL EQUIPMENT AND NO OUTSIDE SERVICES ASSISTING IN THE HOME. CM DISCUSSED AVAILABILITY OF HOME HEALTH, REHAB SERVICES AND MEDICAL EQUIPMENT. PT AND SPOUSE INITIALLY REPORT PLAN FOR PT TO GO HOME WITH HOME HEALTH, THEY WERE THINKING OF USING [facility]. CM DISCUSSED THERAPY PROGRESS, PT'S SPOUSE REPORTS PT IS VERY WEAK AND SHE IS NOT ABLE TO HELP BECAUSE OF HER HURT BACK. PT AND SPOUSE THEN DISCUSSED REHAB AND THEY WANT REHAB AT [facility] WHICH IS CLOSER TO THEIR HOME. CHOICE SIGNED. IMPORTANT MESSAGE FROM MEDICARE PROVIDED AND EXPLAINED. CM FAXED REFERRAL INFORMATION TO [facility] AT [phone]. CM WAITING ADMISSION DETERMINATION FROM [facility] FOR REHAB SERVICES. Elementary Education Tutor: Min Deleon DCPIA - Discharge Planning Initial Assessment Updated by ALBARO: Min Deleon on 04/12/19 5:49 pm * Is the patient Alert and Oriented? Yes * How many steps to enter\exit or inside your home? * PCP DR JAMA * [facility] * Preadmission Environment Home with Family * ADLs Independent * Equipment None * Other Equipment NO MEDICAL EQUIPMENT PROVIDER PREFERENCE * List name and contact numbers for known caregivers / representatives who currently or will assist patient after discharge: NANI GROVE, SPOUSE, * Verbal permission to speak to the caregivers and representatives has been obtained from the patient. Yes * Community resources currently utilized None * Please name any agencies selected above. NONE * Additional services required to return to the preadmission environment? Yes * Can the patient safely return to the preadmission environment? Yes * Has this patient been hospitalized within the prior 30 days at any hospital? No Coverage Notice Reviewer: ALBARO Deleon Notice Issued Date-Time: 04/12/2019 14:45 Notice Type: Patient Choice Letter Notice Delivered To: Patient Relationship to Patient: Millwright Name: Delivery Method: HAND - Hand Delivered Serena Days: Prior Verbal Notification: Recipient Understood Notice: Yes Recipient Signature: Yes Med Rec Note Co-signed by Attending: Coverage Notice Comment: [facility]. Reviewer: [id number] Deleon Notice Issued Date-Time: 04/12/2019 14:45 Notice Type: IM Discharge Notice Notice Delivered To: Patient Relationship to Patient: Millwright Name: Delivery Method: HAND - Hand Delivered Serena Days: Prior Verbal Notification: Recipient Understood Notice: Yes Recipient Signature: Yes Med Rec Note Co-signed by Attending: Coverage Notice Comment: Last DP export: 04/13/19 8:11 a Patient Name: JODI GROVE Page [id number] at 1623 All edits/amendments must be made on the electronic document DICTATION DATE: 04/13/191622 CREATIVE INTERN: ADITI 04/13/191622 RPT#: [id number] DC DATE: STATUS: ADM IN [facility] [address] [place] [address] END OF REPORT
--- NOTE | 2019-04-13 16:33 | MORECARE ---
CASE MANAGEMENT DISCHARGE SUMMARY PATIENT: JODI GROVE UNIT: [id number] ADM DATE: 04/07/19 AGE: 83 : 35 SEX: M ROOM/BED: D.2121 AUTHOR: TIM,DOC PHYSICIAN: REFERRING PHYSICIAN: CATHLEEN MCCARTHY MD DATE OF SERVICE: 04/13/19 Discharge Plan Patient Name: JODI GROVE Facility: [facility]:[place] : 1935 Planned Disposition: Senior Living Facility Anticipated Discharge Date: 04/14/19 Discharge Date: Expected LOS: 7 Initial Reviewer: [id number] Initial Review Date: 04/12/2019 Generated: 04/13/19 5:33 pm Comments DCP- Discharge Planning Updated by [email or web address]: Min Deleon on 04/13/19 3:[address] Patient Name: JODI GROVE Encounter No: [id number] : 1935 Primary Insurance: MEDICARE A & B Anticipated DC Date: 04-14-2019 Planned Disposition: Senior Living Facility External Planned Provider: [facility], MEDICARE REHAB BED DCP follow-up note: CM RECEIVED CALL FROM SHARON AT [facility], THEY WILL ACCEPT PT AND WILL DATA COMMUNICATIONS TECHNICIAN AT 0900 IN THE MORNING. PT NOTIFIED AND IN AGREEMENT WITH DISCHARGE PLAN. TRUDI NOGUERA NOTIFIED. FOR DISCHARGE FAX DISCHARGE INFORMATION TO [facility] AT [phone]; NURSE REPORT TO BE CALLED TO [facility] AT [phone]. [facility] TO ARRANGE VAN TRANSPORT FOR 0900 04-14-19. CANDIDO Huff DCP- Discharge Planning Updated by [email or web address]: Min Deleon on 04/12/19 4:[address] Patient Name: JODI GROVE Admission Status: ER Accout number: [id number] Admission Date: 04-07-2019 : 1935 Admission Diagnosis:HYPERGLYCEMIA, UNSPECIFIED Attending: CATHLEEN MCCARTHY Current LOS: 5 Anticipated DC Date: 04-14-2019 Planned Disposition: Senior Living Facility Primary Insurance: MEDICARE A & B PLANNED EXTERNAL PROVIDER: [facility], MEDICARE REHAB BED Discharge Planning Comments: CM MET WITH PT AND SPOUSE IN ROOM TO DISCUSS DISCHARGE PLANNING AND NEEDS. JODI GROVE provided verbal consent to discuss current and ongoing needs with/in the presence of: SPOUSE, NANI. PT REPORTS LIVING AT HOME INDEPENDENTLY WITH SPOUSE. PT HAS NO MEDICAL EQUIPMENT AND NO OUTSIDE SERVICES ASSISTING IN THE HOME. CM DISCUSSED AVAILABILITY OF HOME HEALTH, REHAB SERVICES AND MEDICAL EQUIPMENT. PT AND SPOUSE INITIALLY REPORT PLAN FOR PT TO GO HOME WITH HOME HEALTH, THEY WERE THINKING OF USING [facility]. CM DISCUSSED THERAPY PROGRESS, PT'S SPOUSE REPORTS PT IS VERY WEAK AND SHE IS NOT ABLE TO HELP BECAUSE OF HER HURT BACK. PT AND SPOUSE THEN DISCUSSED REHAB AND THEY WANT REHAB AT [facility] WHICH IS CLOSER TO THEIR HOME. CHOICE SIGNED. IMPORTANT MESSAGE FROM MEDICARE PROVIDED AND EXPLAINED. CM FAXED REFERRAL INFORMATION TO [facility] AT [phone]. CM WAITING ADMISSION DETERMINATION FROM [facility] FOR REHAB SERVICES. Stick Roller: Min Deleon WVPIA - Discharge Planning Initial Assessment Updated by [id number]: Min Deleon on 04/12/19 5:49 pm * Is the patient Alert and Oriented? Yes * How many steps to enter\exit or inside your home? * PCP DR JAMA * Pharm[facility] * Preadmission Environment Home with Family * ADLs Independent * Equipment None * Other Equipment NO MEDICAL EQUIPMENT PROVIDER PREFERENCE * List name and contact numbers for known caregivers / representatives who currently or will assist patient after discharge: NANI GROVE, SPOUSE, * Verbal permission to speak to the caregivers and representatives has been obtained from the patient. Yes * Community resources currently utilized None * Please name any agencies selected above. NONE * Additional services required to return to the preadmission environment? Yes * Can the patient safely return to the preadmission environment? Yes * Has this patient been hospitalized within the prior 30 days at any hospital? No Coverage Notice Reviewer: [id number] - Min Deleon Notice Issued Date-Time: 04/12/2019 14:45 Notice Type: Patient Choice Letter Notice Delivered To: Patient Relationship to Patient: Mobile Lounge Driver Name: Delivery Method: HAND - Hand Delivered Serena Days: Prior Verbal Notification: Recipient Understood Notice: Yes Recipient Signature: Yes Med Rec Note Co-signed by Attending: Coverage Notice Comment: [facility]. Reviewer: [id number] Jenn Deleon Notice Issued Date-Time: 04/12/2019 14:45 Notice Type: IM Discharge Notice Notice Delivered To: Patient Relationship to Patient: Mobile Lounge Driver Name: Delivery Method: HAND - Hand Delivered Serena Days: Prior Verbal Notification: Recipient Understood Notice: Yes Recipient Signature: Yes Med Rec Note Co-signed by Attending: Coverage Notice Comment: Last DP export: 04/13/19 3:23 p Patient Name: JODI GROVE Page [id number] at 1633 All edits/amendments must be made on the electronic document DICTATION DATE: 04/13/191631 WEB PAGE DEVELOPER: ADITI 04/13/191631 RPT#: [id number] DC DATE: STATUS: ADM IN [facility] [address] [place] [address] END OF REPORT
[2019-04-13 19:54] VITALS: BP 137/72
--- NOTE | 2019-04-14 02:52 | NUR ---
RESTING WITH EYES CLOSED, RESPERATIONS EVEN, NO S/S DISTRESS NOTED.
[2019-04-14 03:57] VITALS: BP 142/69
--- NOTE | 2019-04-14 04:22 | NUR ---
BATH AND LINEN CHANGE COMPLETE. REPOSITIONED IN BED FOR COMFORT.
[2019-04-14 05:50] LABS: BASOPHILS 0.3 % (0-2); EOSINOPHILS 0.9 % (0-7); HEMATOCRIT 35.6 % (42.0-54.0); HEMOGLOBIN 12.8 g/dL (13.5-17.5); IMMATURE GRANULOCYTES 4.7 % (0-5); LYMPHOCYTES 13.9 % (15-50); MCH 31.8 pg (26.0-34.0); MCV 88.3 fL (80.0-100.0); MEAN PLATELET VOLUME 9.8 fL (7.4-10.4); MONOCYTES 9.3 % (2-11); NEUTROPHILS 70.9 % (40-80); PLATELET COUNT 242 10x3/uL (130-400); RBC 4.03 10x6/uL (4.20-6.10); RDW 12.7 % (11.5-14.5); WBC 10.3 10x3/uL (4.8-10.8)
--- NOTE | 2019-04-14 06:09 | NUR ---
I have reviewed this patient and I concur with the Shift Assessment completed by the Licensed Practical Nurse today this shift.
[2019-04-14 06:28] LABS: ANION GAP 16.5 mmol/L (8-16); CALCIUM 7.9 mg/dL (8.5-10.1); CARBON DIOXIDE 21.4 mmol/L (21.0-32.0); CREATININE - SERUM 1.1 mg/dL (0.6-1.3); POTASSIUM - SERUM 3.9 mmol/L (3.5-5.1)
--- NOTE | 2019-04-14 07:23 | NUR ---
REPORT RECEIVED. WILL CONTINUE WITH POC. PT CURRENTLY LYING SEMI FOWLERS. CALL LIGHT W/I REACH. PT IS RESTING CURRENTLY. RR EVEN AND UNLABORED ON 4L 02. L.HAND PIV IS SALINE LOCKED. PT DENIES ANY NEEDS. NO S/S OF DISTRESS NOTED. WILL CTM.
[2019-04-14 08:25] VITALS: BP 151/83
[2019-04-14] MEDS ORDERED: CARDIZEM60 MG PO (08:44)
--- NOTE | 2019-04-14 09:00 | MORECARE ---
CASE MANAGEMENT DISCHARGE SUMMARY PATIENT: JODI GROVE UNIT: [id number] ADM DATE: 04/07/19 AGE: 83 : 35 SEX: M ROOM/BED: D.2121 AUTHOR: TIM,DOC PHYSICIAN: REFERRING PHYSICIAN: CATHLEEN MCCARTHY MD DATE OF SERVICE: 04/14/19 Discharge Plan Patient Name: JODI GROVE Facility: [facility]:[place] : 1935 Planned Disposition: Long Term Facility Anticipated Discharge Date: 04/14/19 Discharge Date: Expected LOS: 7 Initial Reviewer: [id number] Initial Review Date: 04/12/2019 Generated: 04/14/19 9:59 am Comments DCP- Discharge Planning Updated by [email or web address]: Min Deleon on 04/13/19 3:[address] Patient Name: JODI GROVE Encounter No: [id number] : 1935 Primary Insurance: MEDICARE A & B Anticipated DC Date: 04-14-2019 Planned Disposition: Long Term Facility External Planned Provider: [facility], MEDICARE REHAB BED DCP follow-up note: CM RECEIVED CALL FROM SHARON AT [facility], THEY WILL ACCEPT PT AND WILL SHIP SUPERINTENDENT AT 0900 IN THE MORNING. PT NOTIFIED AND IN AGREEMENT WITH DISCHARGE PLAN. TRUDI NOGUERA NOTIFIED. FOR DISCHARGE FAX DISCHARGE INFORMATION TO [facility] AT [phone]; NURSE REPORT TO BE CALLED TO [facility] AT [phone]. [facility] TO ARRANGE VAN TRANSPORT FOR 0900 04-14-19. CANDIDO Huff DCP- Discharge Planning Updated by [email or web address]: Min Deleon on 04/12/19 4:[address] Patient Name: JODI GROVE Admission Status: ER Accout number: [id number] Admission Date: 04-07-2019 : 1935 Admission Diagnosis:HYPERGLYCEMIA, UNSPECIFIED Attending: CATHLEEN MCCARTHY Current LOS: 5 Anticipated DC Date: 04-14-2019 Planned Disposition: Long Term Facility Primary Insurance: MEDICARE A & B PLANNED EXTERNAL PROVIDER: [facility], MEDICARE REHAB BED Discharge Planning Comments: CM MET WITH PT AND SPOUSE IN ROOM TO DISCUSS DISCHARGE PLANNING AND NEEDS. JODI GROVE provided verbal consent to discuss current and ongoing needs with/in the presence of: SPOUSE, NANI. PT REPORTS LIVING AT HOME INDEPENDENTLY WITH SPOUSE. PT HAS NO MEDICAL EQUIPMENT AND NO OUTSIDE SERVICES ASSISTING IN THE HOME. CM DISCUSSED AVAILABILITY OF HOME HEALTH, REHAB SERVICES AND MEDICAL EQUIPMENT. PT AND SPOUSE INITIALLY REPORT PLAN FOR PT TO GO HOME WITH HOME HEALTH, THEY WERE THINKING OF USING [facility]. CM DISCUSSED THERAPY PROGRESS, PT'S SPOUSE REPORTS PT IS VERY WEAK AND SHE IS NOT ABLE TO HELP BECAUSE OF HER HURT BACK. PT AND SPOUSE THEN DISCUSSED REHAB AND THEY WANT REHAB AT [facility] WHICH IS CLOSER TO THEIR HOME. CHOICE SIGNED. IMPORTANT MESSAGE FROM MEDICARE PROVIDED AND EXPLAINED. CM FAXED REFERRAL INFORMATION TO [facility] AT [phone]. CM WAITING ADMISSION DETERMINATION FROM [facility] FOR REHAB SERVICES. Rib Cutter: Min Deleon NVPIA - Discharge Planning Initial Assessment Updated by [id number]: Min Deleon on 04/12/19 5:49 pm * Is the patient Alert and Oriented? Yes * How many steps to enter\exit or inside your home? * PCP DR JAMA * Pharm[facility] * Preadmission Environment Home with Family * ADLs Independent * Equipment None * Other Equipment NO MEDICAL EQUIPMENT PROVIDER PREFERENCE * List name and contact numbers for known caregivers / representatives who currently or will assist patient after discharge: NANI GROVE, SPOUSE, * Verbal permission to speak to the caregivers and representatives has been obtained from the patient. Yes * Community resources currently utilized None * Please name any agencies selected above. NONE * Additional services required to return to the preadmission environment? Yes * Can the patient safely return to the preadmission environment? Yes * Has this patient been hospitalized within the prior 30 days at any hospital? No Coverage Notice Reviewer: [id number] - Min Deleon Notice Issued Date-Time: 04/12/2019 14:45 Notice Type: Patient Choice Letter Notice Delivered To: Patient Relationship to Patient: Siderographer Name: Delivery Method: HAND - Hand Delivered Serena Days: Prior Verbal Notification: Recipient Understood Notice: Yes Recipient Signature: Yes Med Rec Note Co-signed by Attending: Coverage Notice Comment: [facility]. Reviewer: [id number] Jenn Deleon Notice Issued Date-Time: 04/12/2019 14:45 Notice Type: IM Discharge Notice Notice Delivered To: Patient Relationship to Patient: Siderographer Name: Delivery Method: HAND - Hand Delivered Serena Days: Prior Verbal Notification: Recipient Understood Notice: Yes Recipient Signature: Yes Med Rec Note Co-signed by Attending: Coverage Notice Comment: Last DP export: 04/13/19 3:33 p Patient Name: JODI GROVE Page [id number] at 0900 All edits/amendments must be made on the electronic document DICTATION DATE: 04/14/19858 LOCK CORNER MACHINE OPERATOR: ADITI 04/14/19858 RPT#: [id number] DC DATE: STATUS: ADM IN [facility] [address] [place] [address] END OF REPORT
--- NOTE | 2019-04-14 09:20 | NUR ---
PT DISCHARGED TO [facility]. PIV REMOVED WITH CATHETER TIP FULLY INTACT. TELEMETRY REMOVED AND RETURNED. PT SIGNED PROPER DISCHARGE INSTRUCTIONS AND REMOVED ALL VALUABLES FROM THE ROOM. NOTIFIED [facility] TO MAKE 4 WEEK FOLLOW UP APPOINTMENT WITH .
== END 2019-04-14 09:21 | DRG 871 ==
LOC: D.ER 23:22 → D.M2 04-07 00:31
PROVIDERS: Family Medicine; General Practice; Legal Medicine; ADMIT Internal Medicine Nephrology; ATTEND Internal Medicine Nephrology
PROC: 07DR3ZX Extraction of Iliac Bone Marrow, Percutaneous Approach, Diagnostic (ICD-10-PCS; principal; 2019-04-08 13:45)
DX: A41.9 Sepsis, unspecified organism (principal); G93.41 Metabolic encephalopathy; E87.1 Hypo-osmolality and hyponatremia; N17.9 Acute kidney failure, unspecified; D68.9 Coagulation defect, unspecified; D61.818 Other pancytopenia; I48.91 Unspecified atrial fibrillation; E87.6 Hypokalemia; E11.9 Type 2 diabetes mellitus without complications; M19.90 Unspecified osteoarthritis, unspecified site